=== PATIENT | female | born 1990 | race Caucasian/White ===

== ENCOUNTER 2021-07-03 00:23 | Emergency (ER) | payer OTHER ==
[~2021-07-03] VITALS: Ht 157.5 cm; Wt 56.0 kg
[2021-07-03 00:59] VITALS: BP 103/62
== END 2021-07-03 03:45 | disposition left against medical advice (07) ==
LOC: ER 00:23
DX: Z53.21 Procedure and treatment not carried out due to patient leaving prior to being seen by health care provider (principal)
CPT/HCPCS: 93005